=== PATIENT | male | born 1980 | race Caucasian/White ===

== ENCOUNTER → 2016-05-08 | Outpatient (CLI) | payer OTHER ==
[~2016-05-08] MED LIST: ALEVE220 MG PO; CLARITIN10 M3 PO; HYDRODIURIL25 MG PO; LIPITOR10 MG PO; NORVASC10 MG PO; PRINIVIL OR ZES10 MG PO
--- NOTE | ~2016-05-08 | PUL ---
PATIENT'S NAME: [facility] AGE: 35 Y [address] ROOM: [place] [address] LOCATION: [facility] ADMIT DATE: 05/08/2016 Pulmonary DISCHARGE DATE: FAMILY PHYSICIAN: EMILIA DONAHUE MD ATTENDING PHYSICIAN: Corina Seymour NAME OF PROCEDURE: Sleep Study DATE OF PROCEDURE: 05/08/16 TECH: KARINA Lemons TEST #: [facility] [place]# [id number] MEDICAL HISTORY: The patient's is a 35-year-old overweight gentleman with a history of hypersomnia and an abnormal home sleep test. SLEEP STAGE SUMMARY: The patient was studied for 485 minutes of which he slept 375 minutes. He fell asleep in 7 minutes and slept for 77% of the night. Sleep architecture revealed a decline in slow wave and REM sleep. RESPIRATORY SUMMARY: Oxygen saturations ranged from 86-97%. This study was done to titrate CPAP which was started at 6 cm and titrated to 14 cm with good control of the respiratory events. EKG SUMMARY: Average heart rate during sleep was 74 bpm. LIMB MOVEMENT SUMMARY: No clinically relevant periodic limb movements were noted. SUMMARY: Obstructive sleep apnea responsive to CPAP 14 cm. PLAN: Suggest CPAP on 14 cm. Patient will receive results from the ordering provider. MD ARNULFO GOODMAN/ /[id number] dtt: 05/17/16 1455 , Mario Harris. dtd: 05/10/16 1620
== END | disposition disaster alternative care site (69) ==
LOC: GSLP 02-14 21:00
DX: G47.33 Obstructive sleep apnea (adult) (pediatric) (principal); I11.9 Hypertensive heart disease without heart failure